=== PATIENT | female | born 1975 | race American Indian/Alaskan Native ===

== ENCOUNTER 2018-03-16 01:17 | Emergency (ER) | payer MEDICAID, OTHER ==
--- NOTE | 2018-03-16 02:17 | XRay Report ---
FINAL REPORT EXAM: XR CHEST ROUTINE 2V HISTORY: cough/cp TECHNIQUE: PA and lateral views of the chest were submitted. FINDINGS: The heart size and mediastinum appear normal. The lungs are clear. Pleural fluid is not seen. The bon es and soft tissues appear normal. IMPRESSION: Normal chest.
--- NOTE | 2018-03-16 04:46 | Emergency Department Report ---
- General Chief Complaint: Upper Respiratory Infection Stated Complaint: RESPIATORY ISSUES Time Seen by Provider: 03/16/18 03:36 Source: patient Mode of arrival: Ambulatory Limitations: No Limitations - History of Present Illness MD Complaint: cough -: days(s) (2) Severity: mild Improves With: nothing Worsens With: nothing Associated Symptoms: rhinorrhea, nasal congestion, cough. denies: myalgias, abdominal pain, vomiting, diarrhea, confusion, weight loss, epistaxis, hoarseness - Related Data Previous Rx's Medication Instructions Recorded Last Taken Type Acetaminophen/Codeine 1 tab PO Q6H PRN #30 tab 01/03/14 Unknown Rx [Acetaminophen-Codeine #3 TAB] Ibuprofen [Motrin] 600 mg PO Q8H PRN #60 tablet 01/03/14 Unknown Rx Penicillin Vk [Veetids TAB] 500 mg PO QID #40 tablet 01/03/14 Unknown Rx ALBUTEROL Inhaler (OR & NICU) 1 puff IH Q4-6H PRN #1 inha 03/16/18 Unknown Rx [ProAir HFA Inhaler] guaiFENesin/CODEINE [Robitussin AC] 5 ml PO Q6H PRN #120 ml 03/16/18 Unknown Rx Allergies Allergy/AdvReac Type Severity Reaction Status Date / Time No Known Allergies Allergy Unverified 01/03/14 17:27 ED Review of Systems ROS: Stated complaint: RESPIATORY ISSUES Other details as noted in HPI Constitutional: denies: chills, fever Eyes: denies: eye pain, eye discharge, vision change ENT: denies: ear pain, throat pain Respiratory: cough. denies: shortness of breath, wheezing Cardiovascular: denies: chest pain, palpitations Endocrine: no symptoms reported Gastrointestinal: denies: abdominal pain, nausea, diarrhea Genitourinary: denies: urgency, dysuria, discharge Musculoskeletal: denies: back pain, joint swelling, arthralgia Skin: denies: rash, lesions Neurological: denies: headache, weakness, paresthesias Psychiatric: denies: anxiety, depression Hematological/Lymphatic: denies: easy bleeding, easy bruising ED Past Medical Hx - Past Medical History Previous Medical History?: Yes Hx Hypertension: Yes (No meds) Hx Sickle Cell Disease: Yes (trait) Additional medical history: Bronchitis - Surgical History Past Surgical History?: Yes Additional Surgical History: D&C, c sec X 4 - Social History Smoking Status: Current Every Day Smoker Substance Use Type: Alcohol, Marijuana - Medications Home Medications: Home Medications Medication Instructions Recorded Confirmed Last Taken Type Acetaminophen/Codeine 1 tab PO Q6H PRN #30 tab 01/03/14 Unknown Rx [Acetaminophen-Codeine #3 TAB] Ibuprofen [Motrin] 600 mg PO Q8H PRN #60 tablet 01/03/14 Unknown Rx Penicillin Vk [Veetids TAB] 500 mg PO QID #40 tablet 01/03/14 Unknown Rx ALBUTEROL Inhaler (OR & NICU) 1 puff IH Q4-6H PRN #1 inha 03/16/18 Unknown Rx [ProAir HFA Inhaler] guaiFENesin/CODEINE [Robitussin AC] 5 ml PO Q6H PRN #120 ml 03/16/18 Unknown Rx ED Physical Exam - General Limitations: No Limitations General appearance: alert, in no apparent distress - Head Head exam: Present: atraumatic, normocephalic - Eye Eye exam: Present: normal appearance, PERRL - ENT ENT exam: Present: mucous membranes moist, other (42-year-old [place]yanese female, smoker, presents to emergency department with 3 day history of cough, congestion with some coryza has been taking some DayQuil but reports is not helping.. She reports no fever, chills, sweats. No hemoptysis, no hematemesis, no hematochezia. She reports no abdominal pain or dysuria. Nasal congestion is been bilaterally. She has had some mucus some yellowish mucous production as well.) - Neck Neck exam: Present: normal inspection, full ROM - Respiratory Respiratory exam: Present: normal lung sounds bilaterally. Absent: respiratory distress, rales, rhonchi, chest wall tenderness, accessory muscle use - Cardiovascular Cardiovascular Exam: Present: regular rate, normal rhythm. Absent: systolic mu rmur, diastolic murmur, rubs, gallop - GI/Abdominal GI/Abdominal exam: Present: soft, normal bowel sounds. Absent: tenderness, guarding, hyperactive bowel sounds, hypoactive bowel sounds, organomegaly, bruit - Extremities Exam Extremities exam: Present: normal inspection - Back Exam Back exam: Present: normal inspection - Neurological Exam Neurological exam: Present: alert, oriented X3 - Psychiatric Psychiatric exam: Present: normal affect, normal mood - Skin Skin exam: Present: warm, dry, intact, normal color. Absent: rash ED Course Vital Signs 03/16/18 03/16/18 01:18 01:31 Temperature 98.2 F 98 F Pulse Rate 104 H 98 H Respiratory 12 14 Rate Blood Pressure 145/91 126/69 O2 Sat by Pulse 97 98 Oximetry Critical care attestation.: If time is entered above; I have spent that time in minutes in the direct care of this critically ill patient, excluding procedure time. ED Disposition Clinical Impression: Cough, URI (upper respiratory infection) Disposition: - TO HOME OR SELFCARE Is pt being admited?: No Does the pt Need Aspirin: No Condition: Stable Instructions: Dextromethorphan (By mouth), Cold Symptoms (ED) Additional Instructions: Addendum to emergency departments to experience any worsening fever, any uncontrollable nausea, vomiting, severe abdominal pain, no suggestion of joint condition is worsening Referrals: PRIMARY CARE [Primary Care Provider] - 3-5 Days [facility] [Provider Group] - 3-5 Days
[2018-03-16 05:13] VITALS: BP 104/66
== END 2018-03-16 05:11 | disposition home or self-care (01) ==
LOC: ED 01:17
DX: J06.9 Acute upper respiratory infection, unspecified (principal); I10 Essential (primary) hypertension; F17.200 Nicotine dependence, unspecified, uncomplicated; F12.10 Cannabis abuse, uncomplicated
CPT/HCPCS: 71046

== ENCOUNTER 2018-04-27 06:22 | Emergency (ER) | payer OTHER ==
[2018-04-27] MEDS ORDERED: TYLENOL ONE (06:40)
[2018-04-27 06:49] VITALS: BP 122/75
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
== END 2018-04-27 08:17 | disposition home or self-care (01) ==
LOC: ED 06:22
DX: S39.012A Strain of muscle, fascia and tendon of lower back, initial encounter (principal); S76.911A Strain of unspecified muscles, fascia and tendons at thigh level, right thigh, initial encounter; I10 Essential (primary) hypertension; F17.200 Nicotine dependence, unspecified, uncomplicated; V89.2XXA Person injured in unspecified motor-vehicle accident, traffic, initial encounter; Y93.89 Activity, other specified; Y92.488 Other paved roadways as the place of occurrence of the external cause; Y99.8 Other external cause status
CPT/HCPCS: 99282

== ENCOUNTER 2020-01-14 21:33 | Emergency (ER) | payer OTHER ==
[2020-01-14 22:27] VITALS: BP 136/73
--- NOTE | 2020-01-14 23:03 | XRay Report ---
Left foot 2 views INDICATION: Left foot pain following injury IMPRESSION: Moderate swelling overlying the left great toe medially. No underlying fracture or sublux ation is appreciated. Signer Name: Andrews Hester MD Signed: 01/14/2020 10:58 PM Workstation Name: [id number]
[2020-01-15] MEDS ORDERED: IBUPROFEN 600 MG TAB PO ONE (00:44)
[2020-01-15] MEDS ORDERED: ACETAMINOPHEN 500 MG TAB PO ONE (00:44)
--- NOTE | 2020-01-15 01:19 | Emergency Department Report ---
ED Lower Extremity HPI - General Chief Complaint: Extremity Injury, Lower Stated Complaint: LEFT TOE INJURY Source: patient Mode of arrival: Ambulatory Limitations: No Limitations - History of Present Illness Initial Comments: Patient is a 44-year-old -[place] female with a history of hypertension who presents to the ED with complaint of acute onset persistent severe painful swollen left great toe and left foot pain after she tripped at home and twisted her left foot against the right foot and fell on the floor 24 hours ago. Patient states that she tripped against her pajama while getting out of bed. Patient states that she is unable to bear weight on the left foot and left great toe because of pain. Patient states that she has been taking [id number] medication with no relief. Patient denies head or neck injuries, back pain, dizziness, syncope, seizures, chest pain, shortness of breath, numbness and tingling or weakness of lower extremities bilaterally or change in vision. MD Complaint: foot injury -: Sudden, hour(s) (24) Injury: Foot: Left (left foot), Toes: Left (left great toe pain) Type of Injury: blunt Place: home Severity: severe Severity scale (0 -10): 8 Improves With: nothing Worsens With: weight bearing, movement, palpation Context: fall, direct blow, other (Tripped and fell down on the floor) Associated Symptoms: swelling, able to partially bear weight. denies: numbness, tingling, unable to bear weight, ambulatory, other Treatments Prior to Arrival: NSAIDS - Related Data Previous Rx's Medication Instructions Recorded Last Taken Type Ibuprofen [Motrin] 600 mg PO Q8H PRN #60 tablet 01/03/14 Unknown Rx Penicillin Vk [Veetids TAB] 500 mg PO QID #40 tablet 01/03/14 Unknown Rx Albuterol Mdi (or & Nicu Only) 1 puff IH Q4-6H PRN #1 inha 03/16/18 Unknown Rx [ProAir HFA Inhaler] guaiFENesin/CODEINE [Robitussin AC] 5 ml PO Q6H PRN #120 ml 03/16/18 Unknown Rx Naproxen [Naprosyn] 500 mg PO TID PRN #15 tablet 04/27/18 Unknown Rx Acetaminophen/Codeine [Tylenol 1 tab PO Q6H PRN #12 tab 11/03/20 Unknown Rx /Codeine # 3 tab] Ibuprofen [Motrin] 800 mg PO Q8HR PRN #30 tablet 01/15/20 Unknown Rx methOCARBAMOL [Robaxin TAB] 500 mg PO BID PRN #20 tab 01/15/20 Unknown Rx Allergies Allergy/AdvReac Type Severity Reaction Status Date / Time No Known Allergies Allergy Unverified 01/03/14 17:27 ED Review of Systems ROS: Stated complaint: LEFT TOE INJURY Other details as noted in HPI Constitutional: denies: chills, fever Eyes: denies: eye pain, eye discharge, vision change ENT: denies: ear pain, throat pain Respiratory: denies: cough, shortness of breath, wheezing Cardiovascular: denies: chest pain, palpitations Endocrine: no symptoms reported Gastrointestinal: denies: abdominal pain, nausea, vomiting, diarrhea Genitourinary: denies: urgency, dysuria, discharge Musculoskeletal: joint swelling (Left great toe swelling), arthralgia (Left great toe and foot pain). denies: back pain Skin: denies: rash, lesions Neurological: denies: headache, weakness, paresthesias Psychiatric: denies: anxiety, depression Hematological/Lymphatic: denies: easy bleeding, easy bruising ED Past Medical Hx - Past Medical History Previous Medical History?: Yes Hx Hypertension: Yes (No meds) Hx Sickle Cell Disease: Yes (trait) Additional medical history: Bronchitis - Surgical History Past Surgical History?: Yes Additional Surgical History: D&C, c sec X 4 - Social History Smoking Status: Current Some Day Smoker - Medications Home Medications: Home Medications Medication Instructions Recorded Confirmed Last Taken Type Ibuprofen [Motrin] 600 mg PO Q8H PRN #60 tablet 01/03/14 Unknown Rx Penicillin Vk [Veetids TAB] 500 mg PO QID #40 tablet 01/03/14 Unknown Rx Albuterol Mdi (or & Nicu Only) 1 puff IH Q4-6H PRN #1 inha 03/16/18 Unknown Rx [ProAir HFA Inhaler] guaiFENesin/CODEINE [Robitussin AC] 5 ml PO Q6H PRN #120 ml 03/16/18 Unknown Rx Naproxen [Naprosyn] 500 mg PO TID PRN #15 tablet 04/27/18 Unknown Rx Acetaminophen/Codeine [Tylenol 1 tab PO Q6H PRN #12 tab 01/15/20 Unknown Rx /Codeine # 3 tab] Ibuprofen [Motrin] 800 mg PO Q8HR PRN #30 tablet 01/15/20 Unknown Rx methOCARBAMOL [Robaxin TAB] 500 mg PO BID PRN #20 tab 01/15/20 Unknown Rx ED Physical Exam - General Limitations: No Limitations General appearance: alert, in no apparent distress - Head Head exam: Present: atraumatic, normocephalic, normal inspection - Eye Eye exam: Present: normal appearance, PERRL, EOMI Pupils: Present: normal accommodation - ENT ENT exam: Present: normal exam, normal orophraynx, mucous membranes moist, TM's normal bilaterally, normal external ear exam - Neck Neck exam: Present: normal inspection, full ROM. Absent: tenderness, lymphadenopathy - Respiratory Respiratory exam: Present: normal lung sounds bilaterally. Absent: respiratory distress, wheezes, rales, chest wall tenderness, accessory muscle use, decreased breath sounds - Cardiovascular Cardiovascular Exam: Present: regular rate, normal rhythm, normal heart sounds. Absent: systolic murmur, diastolic murmur, rubs, gallop - GI/Abdominal GI/Abdominal exam: Present: soft, normal bowel sounds. Absent: tenderness, guarding, rebound, hyperactive bowel sounds, organomegaly - Extremities Exam Extremities exam: Present: normal inspection, full ROM, tenderness, normal capillary refill, joint swelling (Palpable left great toe tenderness with swelling), other (Palpable left foot tenderness) - Back Exam Back exam: Present: normal inspection, full ROM. Absent: tenderness, CVA tenderness (R), CVA tenderness (L), muscle spasm, paraspinal tenderness, vertebral tenderness - Neurological Exam Neurological exam: Present: alert, oriented X3, CN II-XII intact, normal gait, reflexes normal - Psychiatric Psychiatric exam: Present: normal affect, normal mood - Skin Skin exam: Present: warm, dry, intact, normal color. Absent: rash ED Course Vital Signs 01/14/20 22:25 Temperature 97.3 F L Pulse Rate 80 Respiratory 20 Rate Blood Pressure 136/73 O2 Sat by Pulse 100 Oximetry ED Lower Extremity MDM - Radiology Data Radiology results: report reviewed, image reviewed Findings [facility] [address] [place] [address] XRay Report Signed Patient: JEANNIE LAM MR#: [id number] : 1975 Acct:[id number] Age/Sex: 44 / F ADM Date: 01/14/20 Loc: ED Attending Dr: Ordering Physician: MAC LUNDY Date of Service: 01/14/20 Procedure(s): XR foot 2V LT Accession Number(s): [id number] cc: MAC LUNDY Fluoro Time In Minutes: Left foot 2 views INDICATION: Left foot pain following injury IMPRESSION: Moderate swelling overlying the left great toe medially. No underlying fracture or subluxation is appreciated. Signer Name: Andrews Hester MD Signed: 01/14/2020 10:58 PM Workstation Name: [id number] Transcribed By: BC Dictated By: Andrews Hester MD Electronically Authenticated By: Andrews Hester MD Signed Date/Time: 01/14/202257 DD/ 57 TD/TT: - Medical Decision Making This is a 44-year-old -[place] female with a history of hypertension who presents to the ED with complaint of acute onset persistent severe painful swollen left great toe and left foot pain after she tripped at home and twisted her left foot against the right foot and fell on the floor 24 hours ago. Patient states that she tripped against her pajama while getting out of bed. Patient states that she is unable to bear weight on the left foot and left great toe because of pain. Patient states that she has been taking [id number] medication with no relief. In the ED, patient is alert and oriented x3 and is not in distress. Patient was treated for pain in the ED and left foot x-ray showed no acute fractures or subluxations but a moderate swelling overlying the left great toe medially. No underlying fracture or subluxation is appreciated. Left foot was fitted with a postop shoe, and the patient was discharged home on pain medications and muscle relaxants. Patient was advised return to the ED immediately if symptoms get worse. Patient was otherwise advised to follow-up with her primary care physician in 5 to 7 days for reevaluation. - Differential Diagnosis toe fracture; foot contusion; toe sprain; foot sprain Critical care attestation.: If time is entered above; I have spent that time in minutes in the direct care of this critically ill patient, excluding procedure time. ED Disposition Clinical Impression: Sprain of great toe of left foot Qualifiers: Encounter type: initial encounter Qualified Code(s): S93.502A - Unspecified sprain of left great toe, initial encounter Contusion of left foot including toes Qualifiers: Encounter type: initial encounter Qualified Code(s): S90.32XA - Contusion of left foot, initial encounter; S90.122A - Contusion of left lesser toe(s) without damage to nail, initial encounter Disposition: TO HOME OR SELFCARE Is pt being admited?: No Does the pt Need Aspirin: No Condition: Stable Instructions: Contusion in Adults (ED), Foot Sprain (ED) Additional Instructions: The left foot x-ray shows no acute fractures or subluxations of your left great toe. Therefore take pain medications with food, drink plenty of fluids and follow-up with your primary care physician in 7 to 10 days for reevaluation. Return to the ED immediately if symptoms get worse. Prescriptions: Ibuprofen [Motrin] 800 mg PO Q8HR PRN #30 tablet PRN Reason: Pain , Severe (7-10) methOCARBAMOL [Robaxin TAB] 500 mg PO BID PRN #20 tab PRN Reason: Muscle Spasm Acetaminophen/Codeine [Tylenol /Codeine # 3 tab] 1 tab PO Q6H PRN #12 tab PRN Reason: Pain Referrals: [facility] [Provider Group] - 7-10 days Time of Disposition: 01:17 Print Language: CZECH
== END 2020-01-15 01:28 | disposition home or self-care (01) ==
LOC: ED 21:33
DX: S93.502A Unspecified sprain of left great toe, initial encounter (principal); S90.32XA Contusion of left foot, initial encounter; I10 Essential (primary) hypertension; D57.3 Sickle-cell trait; F17.200 Nicotine dependence, unspecified, uncomplicated; Z98.890 Other specified postprocedural states; Z79.1 Long term (current) use of non-steroidal anti-inflammatories (NSAID); Z79.2 Long term (current) use of antibiotics; Z79.899 Other long term (current) drug therapy; W01.0XXA Fall on same level from slipping, tripping and stumbling without subsequent striking against object, initial encounter; Y93.89 Activity, other specified; Y92.89 Other specified places as the place of occurrence of the external cause; Y99.8 Other external cause status
CPT/HCPCS: 99283